=== PATIENT | female | born 1975 | race Caucasian/White ===

== ENCOUNTER 2016-11-04 06:34 | Day surgery (SDC) | payer BC ==
[~2016-11-04] VITALS: Ht 165.1 cm; Wt 87.5 kg
[~2016-11-04 06:34] MED LIST: ALBU8.5H3 INH; ATOR10TA65 PO; BUPR300T48 PO; CLON1TAB3 PO; ETHI1TAB20 PO; FLUT9.9S NASAL; ILOP6TAB2 PO; LORA10CA PO; MECL-77 PO; METF100P3 MC; PANT40TA4 PO; QVAR40 INH; SERT-165 PO; SPIR100T31 PO
[2016-11-04 07:37] VITALS: Ht 165.1 cm; Wt 87.5 kg
[2016-11-04 07:40] VITALS: BP 116/80; PULSE 71; RESP 20
[2016-11-04] MEDS ORDERED: AZEL137S9 NASAL (07:57)
[2016-11-04] MEDS ORDERED: ALBU18HF INHALATION (07:57)
[2016-11-04] MEDS ORDERED: PALI39DI IM (07:57)
[2016-11-04] MEDS ORDERED: FERR325T5 PO (07:57)
[2016-11-04] MEDS ORDERED: METOCLOPRAMIDE 5 MG (07:57)
[2016-11-04] MEDS ORDERED: EPHEDrine SULFATE 50 MG/5 ML SYG ONE (08:24)
[2016-11-04] MEDS ORDERED: PROPOFOL 40 ML ONE (08:24)
[2016-11-04] MEDS ORDERED: MIDAZOLAM 1 MG/ML 2 ML INJ ONE ×2 (08:24)
[2016-11-04] MEDS ORDERED: FENTAnyl 50 MCG/ML VIAL ONE (08:24)
[2016-11-04 09:27] VITALS: BP 105/74; PULSE 74; RESP 20
--- NOTE | 2016-11-04 14:04 | GILP ---
DATE OF PROCEDURE: PROCEDURES PERFORMED: 1. Esophagogastroduodenoscopy with biopsy. 2. Colonoscopy. INDICATION: A 41-year-old female undergoing this procedure for rectal bleeding and right upper quad rant abdominal pain. The risk of the procedure, related and unrelated complications, anesthetic ris ks, alternatives discussed. Informed consent was obtained. The patient had declined test . DESCRIPTION OF PROCEDURE: The patient was brought to the GI lab, sedated by Dr. Omer. After opti mum sedation, scope was passed with much ease into esophagus which was grossly within normal limits. Z-line was at 38 cm. It was regular. Stomach mucosa revealed gastritis, random 4 biopsies obtain ed to rule out H pylori infection. Duodenum, first and second part was within normal limits. Retro version done in the stomach, multiple fundal polyps were identified, probably 20 to 25 in number. S cope was straightened out and removed with good patient tolerance. IMPRESSION 1. Normal esophagus. 2. Z-line at 38 cm which was regular and normal. 3. Multiple fundic gland polyps. 4. Mild gastritis. 5. Normal duodenum and ampulla. Plan is to review histopathology. COLONOSCOPY REPORT: The patient was turned around, scope was passed with much ease into rectum, adv anced through sigmoid, descending, transverse colon all the way into the cecum. IC valve identified . Retroversion done in the cecum, ascending colon appeared normal. Appendix was normal. Rest of t he colon appeared normal. Preparation was adequate. Retroversion done in the rectum also, and hemo rrhoids were identified. IMPRESSION: 1. Hemorrhoids which is the cause of rectal bleeding. 2. Normal all the way into the cecum. 3. Normal ileocecal valve. 4. Normal retroversion in the ascending colon and also in the rectum. 5. Preparation was adequate. 6. Clarity was good. PLAN: Stay on high-fiber diet and Sitz bath. Dictated By: MIRI CASAREZ/NTS Conf#: [id number] DID#: [id number] CC: MEMO MANZANARES MD;*EndCC*
== END 2016-11-04 09:14 | disposition home or self-care (01) ==
LOC: GIL 06:34 → SDS 06:34 → GIL 09:14
PROVIDERS: ATTEND Internal Medicine Gastroenterology
DX: K29.50 Unspecified chronic gastritis without bleeding (principal); K31.7 Polyp of stomach and duodenum
CPT/HCPCS: 43239; 45378; 88305; 88312; J2250; J3010; Z7610